=== PATIENT | female | born 1975 | race Caucasian/White ===

== ENCOUNTER 2018-02-12 15:37 | Emergency (ER) | payer SELFPAY, MEDICAID ==
[2018-02-12] MEDS: METHOCARBAMOL 500 MG TAB PO (17:55)
[2018-02-12] MEDS: MORPHINE 10 MG/ML 1ML VIAL (J2270) IM (17:56)
[2018-02-12] MEDS ORDERED: GABAPENTIN 300 MG CAP PO (19:00)
== END 2018-02-12 19:37 | disposition home or self-care (01) ==
LOC: M ED 15:37
DX: M54.12 Radiculopathy, cervical region (principal); Z88.6 Allergy status to analgesic agent; Z88.0 Allergy status to penicillin; Z91.030 Bee allergy status; Z91.040 Latex allergy status
CPT/HCPCS: J2270

== ENCOUNTER → 2018-05-10 | Outpatient (REF) | payer MEDICAID ==
[2018-05-10 19:45] LABS: BASO # 0.1 10^3/uL (0.0-0.2); BASO % 0.5 % (0.0-1.0); EOS # 0.2 10^3/uL (0.0-0.50); EOS % 1.7 % (0.0-3.0); HEMATOCRIT 44.2 % (36.0-47.0); HEMOGLOBIN 14.5 g/dl (12.0-15.5); IMMATURE GRANULOCYTE % 0.4 % (0-3.0); LYMPH # 3.2 10^3/uL (1.5-4.5); LYMPH % 31.1 % (24.0-44.0); MEAN CORPUSCULAR HEMOGLOBIN 29.5 pg (27.0-33.0); MEAN CORPUSCULAR HGB CONC 32.8 g/dl (32.0-36.5); MEAN CORPUSCULAR VOLUME 89.8 fl (80.0-96.0); MONO # 0.7 10^3/uL (0.0-0.8); MONO % 7.1 % (0.0-5.0); NEUTROPHILS # 6.2 10^3/uL (1.8-7.7); NEUTROPHILS % 59.2 % (36.0-66.0); PLATELET COUNT, AUTOMATED 294 10^3/uL (150-450); RED BLOOD COUNT 4.92 10^6/uL (4.00-5.40); RED CELL DISTRIBUTION WIDTH 13.7 % (11.5-14.5); WHITE BLOOD COUNT 10.4 10^3/uL (4.0-10.0)
[2018-05-10 20:11] LABS: ALBUMIN 4.1 GM/DL (3.2-5.2); ALBUMIN/GLOBULIN RATIO 1.28 (1.00-1.93); ALKALINE PHOSPHATASE 70 U/L (45-117); ALT/SGPT 18 U/L (12-78); ANION GAP 8 MEQ/L (8-16); AST/SGOT 11 U/L (7-37); BILIRUBIN,TOTAL 0.5 MG/DL (0.2-1.0); BLOOD UREA NITROGEN 18 MG/DL (7-18); CALCIUM LEVEL 9.4 MG/DL (8.5-10.1); CARBON DIOXIDE LEVEL 24 MEQ/L (21-32); CHLORIDE LEVEL 108 MEQ/L (98-107); CREATININE FOR GFR 0.85 MG/DL (0.55-1.30); FREE T4 0.85 NG/DL (0.76-1.46); GLOMERULAR FILTRATION RATE > 60.0 (>58); GLUCOSE, FASTING 91 MG/DL (70-100); SODIUM LEVEL 140 MEQ/L (136-145); THYROID STIMULATING HORMONE 0.354 uIU/ML (0.358-3.740); TOTAL 25(OH) VITAMIN D 16.5 NG/ML (30.0-100.0); TOTAL PROTEIN 7.3 GM/DL (6.4-8.2)
== END ==
LOC: M SFHCADAM 16:01
DX: F31.9 Bipolar disorder, unspecified (principal); F19.10 Other psychoactive substance abuse, uncomplicated; E55.9 Vitamin D deficiency, unspecified

== ENCOUNTER 2019-06-01 17:13 | Emergency (ER) | payer MEDICAID ==
[~2019-06-01] VITALS: Ht 170.2 cm; Wt 69.0 kg
[~2019-06-01 17:13] MED LIST: DEPA500T2 PO; NEUR300C PO
[2019-06-01] MEDS ORDERED: SERT25TA21 PO (17:52)
[2019-06-01] MEDS ORDERED: MORPHINE 2 MG/ML 1ML VIAL (J2270) IM ONE (18:45)
--- NOTE | 2019-06-01 19:38 | REP ---
Pelvis right hip: Three views. History: Right hip and pelvis pain. Injury in a fall. Findings: Bony pelvic ring is intact. No sacral or pelvic fracture is seen. AP and frog-leg views of the right hip show no evidence of proximal femur fracture. Impression: Negative AP pelvis and right hip radiographs. No fracture seen. Electronically Signed by Jose Ramon Kinney MD 06/01/2019 07:30 P
[2019-06-01 20:46] VITALS: BP 117/83
--- NOTE | 2019-06-02 08:29 | REP ---
CT lumbar spine: 06/01/2019. Indication: Lumbar spine trauma. Comparison: None. Findings: There is no acute fracture, subluxation or dislocation. Small hyperdense focus is noted within the anterior L4 vertebral body most consistent with the bone island. There is no hemorrhage or additional acute post traumatic sequelae within the spinal canal. There are no areas of significant spinal canal narrowing detected. Bony alignment is normal. There is mild narrowing of the L5/S1 disc space. Impression: No acute fracture or additional acute post traumatic sequelae of the lumbar spine. Electronically Signed by Waqar Pretyt DO 06/02/2019 08:20 A
== END 2019-06-01 21:07 | disposition home or self-care (01) ==
LOC: M ED 17:13
DX: S39.012A Strain of muscle, fascia and tendon of lower back, initial encounter (principal); W10.8XXA Fall (on) (from) other stairs and steps, initial encounter; Y92.009 Unspecified place in unspecified non-institutional (private) residence as the place of occurrence of the external cause; Y93.89 Activity, other specified; Y99.8 Other external cause status; M51.26 Other intervertebral disc displacement, lumbar region; M51.27 Other intervertebral disc displacement, lumbosacral region; M25.551 Pain in right hip; F41.9 Anxiety disorder, unspecified; F33.9 Major depressive disorder, recurrent, unspecified; F17.210 Nicotine dependence, cigarettes, uncomplicated; Z79.899 Other long term (current) drug therapy; Z88.0 Allergy status to penicillin; Z88.8 Allergy status to other drugs, medicaments and biological substances
CPT/HCPCS: 72131; 73502; 96372; 99284; J2270

== ENCOUNTER → 2020-04-12 | Outpatient (REF) | payer OTHER, MEDICAID ==
[~2020-04-12] MED LIST changes: +HYDR-643 PO; +LEXA1TAB PO; +OXCA600T8 PO; +SERT25TA21 PO
== END ==
LOC: M LABDRWAD 14:10
PROVIDERS: ATTEND Physician Assistant Medical
DX: Z11.1 Encounter for screening for respiratory tuberculosis (principal); Z11.59 Encounter for screening for other viral diseases

== ENCOUNTER → 2020-06-08 | Outpatient (CLI) | payer OTHER, MEDICAID | LOC: M LABSMTC 09:36 | PROVIDERS: ATTEND Anesthesiology | DX: Z01.818 Encounter for other preprocedural examination (principal); Z20.828 Contact with and (suspected) exposure to other viral communicable diseases | CPT/HCPCS: C9803; U0002 ==

== ENCOUNTER 2020-06-09 10:11 | Day surgery (SDC) | payer OTHER ==
[~2020-06-09] VITALS: Ht 170.2 cm; Wt 65.2 kg
[~2020-06-09 10:11] MED LIST changes: +LR 1,000 ML IV ONE
[2020-06-09] MEDS ORDERED: CLINDAMYCIN 900 MG in IV 1 EA IV ONE (12:00)
[2020-06-09] MEDS ORDERED: CHLORHEXIDINE GLUCONATE 0.12 % 15ML UDC (PERIDEX ORAL RINSE) As Ordered ONE (12:25)
[2020-06-09] MEDS ORDERED: LIDOCAINE 2% W/ EPINEPHRINE 1.7 ML DENTAL INJ As Ordered ONE (12:26)
[2020-06-09] MEDS ORDERED: fentaNYL 250 MCG/5 ML INJECTION (J3010) As Ordered ONE (12:59)
[2020-06-09] MEDS ORDERED: ROCURONIUM BROMIDE 50 MG/5 ML VIAL As Ordered ONE (12:59)
[2020-06-09] MEDS ORDERED: MIDAZOLAM INJ 2MG/2ML VIAL (J2250 PER 1MG) As Ordered ONE (12:59)
[2020-06-09] MEDS ORDERED: dexameTHASONE 4 MG/ML 1ML VIAL (J1100 PER 1MG) As Ordered ONE (12:59)
[2020-06-09] MEDS ORDERED: LIDOCAINE 2% 100MG/5ML SDV (FOR ANES.) As Ordered ONE (12:59)
[2020-06-09] MEDS ORDERED: propofoL 200 MG/20 ML VIAL As Ordered ONE (12:59)
[2020-06-09] MEDS ORDERED: SUGAMMADEX SODIUM 500 MG/5 ML VIAL (BRIDION) As Ordered ONE (12:59)
[2020-06-09] MEDS ORDERED: ONDANSETRON 4MG/2ML VIAL As Ordered ONE (12:59)
[2020-06-09] MEDS ORDERED: ACETAMINOPHEN 1000MG 100ML IV BTL (OFIRMEV) (J0131 PER 10MG) As Ordered ONE (13:01)
[2020-06-09] MEDS ORDERED: ePHEDrine SULFATE 25 MG/5 ML(5MG/ML) SYRINGE As Ordered ONE (13:10)
[2020-06-09] MEDS ORDERED: fentaNYL 100 MCG/2 ML INJECTION (J3010) IV PRN (14:15)
[2020-06-09] MEDS ORDERED: LR 1,000 ML IV SCH (14:15)
[2020-06-09] MEDS ORDERED: METOCLOPRAMIDE INJ 10MG/2ML VIAL (J2765 PER 1) IV PRN (14:15)
[2020-06-09] MEDS ORDERED: ONDANSETRON 4MG/2ML VIAL IV PRN (14:15)
[2020-06-09] MEDS ORDERED: PERCOCET 5MG/325MG TAB As Ordered ONE (15:17)
[2020-06-09] MEDS ORDERED: PERCOCET 5MG/325MG TAB PO PRN (15:30)
[2020-06-09] MEDS ORDERED: PROMETHAZINE INJ 25 MG/ML VIAL (J2550) As Ordered ONE (16:04)
[2020-06-09 16:15] VITALS: BP 118/66
[2020-06-09] MEDS ORDERED: PROMETHAZINE INJ 25 MG/ML VIAL (J2550) IV SCH (16:15)
--- NOTE | 2020-06-10 08:02 | RO ---
DATE OF OPERATION: 06/09/2020 PREOPERATIVE DIAGNOSIS: Malposed, decayed, and nonrestorable teeth #'s 1-3, 5-14, 17, 18, and 21-28 with sharp bony protrusions. POSTOPERATIVE DIAGNOSIS: Malposed, decayed, and nonrestorable teeth #'s 1-3, 5-14, 17, 18, and 21-28 with sharp bony protrusions. FINDINGS: During the surgery were consistent with the preoperative diagnosis. PROCEDURE: Surgical extraction of teeth #'s 1-3, 5-14, 17, 18, and 21-28 with alveoloplasty in all four quadrants. SURGEON: Dr. Ronaldo Weinstein ENGINEERING PROGRAMMER: Ms. Dina Weinstein ANESTHESIA: Mr. Kasi Romero, DENNIS, and Dr. Jade. SPECIMENS: None. ESTIMATED BLOOD LOSS: Minimal for the case. The patient received 1000 mL of lactated Ringer. DRAINS: None. COMPLICATIONS: None. Patient was taken to the postanesthesia care unit (PACU) in stable condition and later discharged to home with instructions for followup and postoperative care. INDICATIONS FOR PROCEDURE: Ms. Morillo is a 45-year-old female who came to the oral surgery office with chief complaint of pain in her teeth. Upon examination it was noted that patient had severe attrition. The teeth were worn down to the gumline, not with decay but rather with the habit of bruxism and grinding. The patient did not have much tooth structure or enamel left, and it was causing her daily pain. Recommended removal of the teeth, and due to the patient's complicated medical history, I recommended that be done in the main operating room under general anesthesia, to which she readily agreed. All the risks, complications, and alternatives were discussed, and all questions were answered. DESCRIPTION OF PROCEDURE: The patient was seen and identified in the preoperative holding area. All necessary paperwork was completed. She was taken to operating room #4, where she was placed under general anesthesia via oral endotracheal intubation with no complications. The patient was then prepped and draped in a sterile fashion, and a time-out was conducted. The throat was suctioned clean and dry, and the throat pack was placed. Local anesthetic in the form of 2% lidocaine with 1:100,000 epinephrine was injected into the left and right maxilla and mandible. A total of 7 carpules at 1.7 mL per carpule was used. We then proceeded with a 15 blade to create a sulcular incision along the buccal aspect of each of the teeth in question. Buccal bone was then removed, and multirooted teeth were section. Each of the roots was then removed, and the sockets were curetted thoroughly and irrigated with copious amounts of irrigation. Buccal bone was then smoothed with a rongeur and a bone file to ensure that sharp bony areas were removed for later denture use. The areas were then thoroughly irrigated and closed with a 3-0 chromic gut suture in a running fashion. The throat was then suctioned clean and dry, and the throat pack was removed. The patient was allowed to emerge from general anesthesia and did so without any complications. She was taken to the PACU in stable condition and later discharged to home with instructions for postoperative care and followup. SOLO
== END 2020-06-09 16:15 | disposition home or self-care (01) ==
LOC: M SDC 10:11 → EDSTATUS 11:00 → M SDC 16:15
PROVIDERS: ATTEND Dentist
DX: K02.9 Dental caries, unspecified (principal); F31.9 Bipolar disorder, unspecified; F17.218 Nicotine dependence, cigarettes, with other nicotine-induced disorders; Z79.899 Other long term (current) drug therapy; Z88.0 Allergy status to penicillin; Z88.8 Allergy status to other drugs, medicaments and biological substances
CPT/HCPCS: 88300; D7210; D7310; D9223; J0131; J1100; J2250; J2405; J3010

== ENCOUNTER 2021-05-15 17:46 | Emergency (ER) | payer OTHER ==
[~2021-05-15] VITALS: Ht 170.2 cm; Wt 61.1 kg
[~2021-05-15 17:46] MED LIST changes: -LR 1,000 ML IV ONE
[2021-05-15 17:47] VITALS: BP 111/79
[2021-05-16] MEDS ORDERED: EMTR1TAB16 PO (18:11)
[2021-05-16] MEDS ORDERED: RALT40TA PO (18:11)
[2021-05-16] MEDS ORDERED: DOXY1CAP62 PO (18:14)
== END 2021-05-15 19:50 | disposition left against medical advice (07) ==
LOC: M ED 17:46
DX: Z53.21 Procedure and treatment not carried out due to patient leaving prior to being seen by health care provider (principal)

== ENCOUNTER 2021-05-16 10:15 | Emergency (ER) | payer OTHER ==
[~2021-05-16] VITALS: Ht 167.6 cm; Wt 62.6 kg
[~2021-05-16 10:15] MED LIST changes: +RALTEGRAVIR 400 MG TAB (ISENTRESS) PO SCH; +TRUVADA 200MG/300MG TABLET PO SCH
[2021-05-16 12:44] LABS: BASO # 0.1 10^3/uL (0.0-0.2); BASO % 0.5 % (0.0-1.0); EOS # 0.3 10^3/uL (0.0-0.5); EOS % 3.3 % (0.0-3.0); HEMATOCRIT 46.6 % (36.0-47.0); LYMPH # 3.1 10^3/uL (1.5-5.0); LYMPH % 33.9 % (24.0-44.0); MEAN CORPUSCULAR HEMOGLOBIN 29.4 pg (27.0-33.0); MEAN CORPUSCULAR HGB CONC 32.2 g/dl (32.0-36.5); MEAN CORPUSCULAR VOLUME 91.2 fl (80.0-96.0); MONO # 0.6 10^3/uL (0.0-0.8); NEUTROPHILS # 5.1 10^3/uL (1.5-8.5); NEUTROPHILS % 55.1 % (36.0-66.0); PLATELET COUNT, AUTOMATED 282 10^3/uL (150-450); RED BLOOD COUNT 5.11 10^6/uL (4.00-5.40); WHITE BLOOD COUNT 9.2 10^3/uL (4.0-10.0)
[2021-05-16 13:32] LABS: BLOOD UREA NITROGEN 14 MG/DL (7-18); CALCIUM LEVEL 8.8 MG/DL (8.5-10.1); CARBON DIOXIDE LEVEL 24 MEQ/L (21-32); CHLORIDE LEVEL 114 MEQ/L (98-107); CREATININE FOR GFR 0.75 MG/DL (0.55-1.30); GLOMERULAR FILTRATION RATE > 60.0 (>58); GLUCOSE, FASTING 95 MG/DL (70-100); POTASSIUM SERUM 4.3 MEQ/L (3.5-5.1); SODIUM LEVEL 142 MEQ/L (136-145)
[2021-05-16 13:33] LABS: ALBUMIN 3.6 GM/DL (3.2-5.2); ALT/SGPT 20 U/L (12-78); BILIRUBIN,TOTAL 0.3 MG/DL (0.2-1.0); TOTAL PROTEIN 6.8 GM/DL (6.4-8.2)
[2021-05-16 13:45] LABS: HEPATITIS B SURFACE ANTIBODY NEGATIVE (POSITIVE)
[2021-05-16 13:56] LABS: HEPATITIS B SURFACE ANTIGEN NEGATIVE (NEGATIVE)
[2021-05-16 14:19] LABS: HEPATITIS C VIRUS ABY INDEX 0.1 INDEX (<0.8)
[2021-05-16 14:25] LABS: HIV 1&2 SCREEN CENTAUR NEGATIVE (NEGATIVE)
[2021-05-16 14:34] LABS: AMPHETAMINES LEVEL URINE NEGATIVE (NEGATIVE); BARBITURATES URINE NEGATIVE (NEGATIVE); BENZODIAZEPINES URINE NEGATIVE (NEGATIVE); CANNABINOIDS URINE POSITIVE (NEGATIVE); COCAINE METABOLITE URINE POSITIVE (NEGATIVE); METHADONE URINE NEGATIVE (NEGATIVE); OPIATES URINE NEGATIVE (NEGATIVE); PHENCYCLIDINE URINE NEGATIVE (NEGATIVE)
[2021-05-16] MEDS ORDERED: LIDOCAINE 1% SDV 5ML VIAL DILUENT ONE (15:05)
[2021-05-16] MEDS ORDERED: DOXYCYCLINE HYCLATE 100MG TABLET PO ONE (15:05)
[2021-05-16] MEDS ORDERED: metroNIDAZOLE (FLAGYL) 500MG TABLET PO ONE (15:05)
[2021-05-16] MEDS ORDERED: EXPOSURE KIT-ADULT 7 DAY SUPPLY PO ONE ×2 (15:05→18:10)
[2021-05-16] MEDS ORDERED: cefTRIAXone SOD 250MG VIAL (J0696 PER 250MG) IM ONE (15:05)
[2021-05-16] MEDS ORDERED: ULIPRISTAL ACETATE 30 MG TAB (ELLA) PO ONE (16:00)
[2021-05-16 16:19] LABS: GC DNA AMPLIFICATION NEGATIVE (NEGATIVE)
[2021-05-16] MEDS ORDERED: HEPATITIS B VACCINE 20MCG/ML 1ML SYRINGE (ADULT DOSE) IM ONE (16:45)
[2021-05-16] MEDS ORDERED: BOOSTRIX/ADACEL VACCINE (DIPHTH/PERTUSS/ACELL/TETANUS) 0.5ML SYR IM ONE (16:45)
[2021-05-16] MEDS ORDERED: FLUCONAZOLE 100 MG TAB PO ONE (16:45)
[2021-05-16] MEDS ORDERED: RALTEGRAVIR 400 MG TAB (ISENTRESS) PO ONE (17:00)
[2021-05-16] MEDS ORDERED: TRUVADA 200MG/300MG TABLET PO ONE (17:00)
[2021-05-16] MEDS ORDERED: HEPATITIS B VACCINE 10 MCG/0.5 ML SYRINGE (FOR ALL OTHER PTS) IM ONE (18:00)
[2021-05-16] MEDS ORDERED: EMTR1TAB16 PO (18:11)
[2021-05-16] MEDS ORDERED: RALT40TA PO (18:11)
[2021-05-16] MEDS ORDERED: DOXY1CAP62 PO (18:14)
[2021-05-16 19:08] LABS: HCG, SERUM QUALITATIVE NEGATIVE (NEGATIVE)
[2021-05-16 19:09] VITALS: BP 128/91
== END 2021-05-16 19:11 | disposition home or self-care (01) ==
LOC: M ED 10:15
DX: T76.21XA Adult sexual abuse, suspected, initial encounter (principal); Y92.9 Unspecified place or not applicable; Y93.9 Activity, unspecified; F19.10 Other psychoactive substance abuse, uncomplicated; F17.200 Nicotine dependence, unspecified, uncomplicated; Z79.899 Other long term (current) drug therapy; Z88.0 Allergy status to penicillin; Z91.89 Other specified personal risk factors, not elsewhere classified; Z88.8 Allergy status to other drugs, medicaments and biological substances
CPT/HCPCS: 80053; 80307; 84703; 85025; 86706; 86780; 86803; 87210; 87340; 87389; 87661; 90715; 90744; 99284; J0696

== ENCOUNTER 2023-08-27 14:16 | Emergency (ER) | payer OTHER ==
[~2023-08-27] VITALS: Ht 170.2 cm; Wt 67.2 kg
[~2023-08-27 14:16] MED LIST changes: +DOXY-443 PO; +EMTR1TAB16 PO; +RALT40TA PO; -RALTEGRAVIR 400 MG TAB (ISENTRESS) PO SCH; -TRUVADA 200MG/300MG TABLET PO SCH
[2023-08-27 14:17] VITALS: BP 127/78; TEMP 98.2; O2SAT 100
== END 2023-08-27 17:32 | disposition left against medical advice (07) ==
LOC: M ED 14:16
DX: Z53.21 Procedure and treatment not carried out due to patient leaving prior to being seen by health care provider (principal)